=== PATIENT | male | born 1955 | race Caucasian/White ===

== ENCOUNTER 2016-05-05 04:21 | Emergency (ER) | payer MEDICARE ==
[~2016-05-05] VITALS: Ht 185.4 cm; Wt 100.5 kg
[~2016-05-05 04:21] MED LIST: AMLO10TA4 PO; AMLO2.5T PO; DIAZ10TA PO; GABA800T2 PO; METR500T PO; POTA20TA6 PO; RISP0.2518 PO; RISP1TAB45 PO; SIMV20TA3 PO; SIMV5TAB5 PO
[2016-05-05] MEDS ORDERED: ASPIRIN 81 MG TABLET CHEW ONE (04:58)
[2016-05-05] MEDS ORDERED: LORazepam 1MG TABLET ONE (04:58)
[2016-05-05] MEDS ORDERED: ASPIRIN 81 MG TABLET CHEW PO ONE (05:00)
[2016-05-05] MEDS ORDERED: LORazepam 1MG TABLET PO ONE (05:00)
[2016-05-05 05:40] LABS: HEMOGLOBIN 15.4 g/dL (13.7-18.0)
[2016-05-05 05:53] LABS: BLOOD UREA NITROGEN 13 mg/dL (7-18)
[2016-05-05 06:00] LABS: IS PT STATUS REG ER OR PRE ER? YES
[2016-05-05 06:40] VITALS: BP 122/64
== END 2016-05-05 06:44 | disposition home or self-care (01) ==
LOC: ED 06:08
DX: F41.1 Generalized anxiety disorder (principal); I10 Essential (primary) hypertension; J44.9 Chronic obstructive pulmonary disease, unspecified; F31.9 Bipolar disorder, unspecified; Z90.89 Acquired absence of other organs
CPT/HCPCS: 36415; 71010; 80048; 82040; 84436; 84443; 84484; 85025; 93005

== ENCOUNTER 2016-05-21 06:57 | Emergency (ER) | payer MEDICARE ==
[~2016-05-21] VITALS: Ht 185.4 cm; Wt 101.7 kg
[2016-05-21] MEDS ORDERED: LORazepam 1MG TABLET ONE (07:33)
[2016-05-21] MEDS ORDERED: LORazepam 1MG TABLET PO ONE (08:00)
[2016-05-21 09:20] VITALS: BP 135/74
== END 2016-05-21 09:21 | disposition home or self-care (01) ==
LOC: ED 07:23
DX: F41.1 Generalized anxiety disorder (principal); J44.9 Chronic obstructive pulmonary disease, unspecified; F31.9 Bipolar disorder, unspecified; Z90.49 Acquired absence of other specified parts of digestive tract
CPT/HCPCS: 71020; 93005

== ENCOUNTER 2016-06-15 05:08 | Emergency (ER) | payer MEDICARE ==
[~2016-06-15] VITALS: Ht 185.4 cm; Wt 103.5 kg
[2016-06-15] MEDS ORDERED: LORazepam 1MG TABLET PO ONE (06:00)
[2016-06-15] MEDS ORDERED: LORazepam 1MG TABLET ONE (06:09)
[2016-06-15 06:13] VITALS: BP 135/76
== END 2016-06-15 06:22 | disposition home or self-care (01) ==
LOC: ED 06:20
DX: F41.1 Generalized anxiety disorder (principal); R06.4 Hyperventilation; F10.20 Alcohol dependence, uncomplicated
CPT/HCPCS: 99284

== ENCOUNTER 2016-06-24 02:40 | Emergency (ER) | payer MEDICARE ==
[~2016-06-24] VITALS: Ht 185.4 cm; Wt 74.0 kg
[2016-06-24] MEDS ORDERED: ONDANSETRON ODT 8 MG PO ONE (03:00)
[2016-06-24] MEDS ORDERED: METOCLOPRAMIDE 5 MG/ML, 2ML IM ONE (03:00)
[2016-06-24] MEDS ORDERED: METOCLOPRAMIDE 5 MG/ML, 2ML ONE (03:11)
[2016-06-24] MEDS ORDERED: ONDANSETRON ODT 8 MG ONE (03:12)
[2016-06-24] MEDS ORDERED: MAALOX/HYOSCYAMINE/LIDOCAINE 45 ML BOTTLE PO ONE (03:30)
[2016-06-24] MEDS ORDERED: FAMOTIDINE 20 MG TABLET PO ONE (03:30)
[2016-06-24 04:30] VITALS: BP 152/89
[2016-06-24] MEDS ORDERED: MAALOX/HYOSCYAMINE/LIDOCAINE 45 ML BOTTLE ONE (04:39)
[2016-06-24] MEDS ORDERED: FAMOTIDINE 20 MG TABLET ONE (04:39)
== END 2016-06-24 05:06 | disposition home or self-care (01) ==
LOC: ED 03:26 → UNDOADMIN 04:03 → EDIP 04:03 → ED 05:06
DX: F10.220 Alcohol dependence with intoxication, uncomplicated (principal); K29.00 Acute gastritis without bleeding; J44.9 Chronic obstructive pulmonary disease, unspecified; I10 Essential (primary) hypertension; F31.9 Bipolar disorder, unspecified
CPT/HCPCS: 96372; 99284; J2765; Q0162

== ENCOUNTER 2016-07-19 23:10 | Emergency (ER) | payer MEDICARE ==
[~2016-07-19] VITALS: Ht 185.4 cm; Wt 101.4 kg
[2016-07-19] MEDS ORDERED: LORA-446 PO (23:50)
[2016-07-19] MEDS ORDERED: LORazepam 1MG TABLET ONE (23:58)
[2016-07-20] MEDS ORDERED: LORazepam 1MG TABLET PO ONE
[2016-07-20 00:02] VITALS: BP 122/87
== END 2016-07-20 00:37 | disposition home or self-care (01) ==
LOC: ED 23:46
DX: F41.1 Generalized anxiety disorder (principal); R25.1 Tremor, unspecified; F31.9 Bipolar disorder, unspecified; J44.9 Chronic obstructive pulmonary disease, unspecified; Z87.891 Personal history of nicotine dependence
CPT/HCPCS: 99284

== ENCOUNTER 2016-09-20 03:20 | Emergency (ER) | payer MEDICARE ==
[~2016-09-20] VITALS: Ht 185.4 cm; Wt 103.7 kg
[~2016-09-20 03:20] MED LIST changes: +LORA-446 PO
[2016-09-20] MEDS ORDERED: LORazepam 1MG TABLET ONE (04:47)
[2016-09-20 04:51] VITALS: BP 126/77
[2016-09-20] MEDS ORDERED: LORazepam 1MG TABLET PO ONE (05:00)
== END 2016-09-20 05:58 | disposition home or self-care (01) ==
LOC: ED 03:42
DX: F41.1 Generalized anxiety disorder (principal); F31.9 Bipolar disorder, unspecified; I10 Essential (primary) hypertension; J44.9 Chronic obstructive pulmonary disease, unspecified; Z88.1 Allergy status to other antibiotic agents
CPT/HCPCS: 99284

== ENCOUNTER 2017-12-22 08:50 | Inpatient (IN) | payer MEDICARE ==
[~2017-12-22] VITALS: Ht 185.4 cm; Wt 98.4 kg
[~2017-12-22 08:50] MED LIST changes: -AMLO2.5T PO; +AMLO2.5T3 PO
[2017-12-22] MEDS ORDERED: SODIUM CHLORIDE 0.9% 1,000ML IVBOLUS ONE (09:30)
[2017-12-22] MEDS ORDERED: SODIUM CHLORIDE FLUSH 10ML SYR IVF ONE (09:30)
[2017-12-22] MEDS ORDERED: ONDANSETRON 2MG/ML, 2ML IVPush ONE (09:30)
[2017-12-22] MEDS ORDERED: ONDANSETRON 2MG/ML, 2ML ONE (09:48)
[2017-12-22] MEDS ORDERED: LORazepam 2 MG/ML, 1ML ONE ×2 (09:48→11:08)
[2017-12-22] MEDS: LORazepam 2 MG/ML, 1ML IVPush PRN ×3 (09:50→11:10)
[2017-12-22 09:52] LABS: MEAN CORPUSCULAR HEMOGLOBIN 34.2 pg (27.5-34.5); MEAN CORPUSCULAR HGB CONC 35.3 g/dL (33.2-36.2); MEAN CORPUSCULAR VOLUME 96.7 fL (81-97); MEAN PLATELET VOLUME 6.6 fL (7.4-10.4); PLATELET COUNT 352 x10^3/uL (130-400); RED BLOOD COUNT 4.82 x10^6/uL (4.38-5.82); RED CELL DISTRIBUTION WIDTH 12.8 % (9.4-14.8)
[2017-12-22 10:00] LABS: CHLORIDE 97 mmol/L (98-107)
[2017-12-22 10:05] LABS: ALANINE AMINOTRANSFERASE 54 U/L (12-78); ALBUMIN 4.4 g/dL (3.4-5.0); ANION GAP 19 mmol/L (5-15); CALCIUM 9.1 mg/dL (8.5-10.1)
[2017-12-22] MEDS ORDERED: PROMETHAZINE 25 MG/ML, 1ML ONE (10:05)
[2017-12-22 10:06] LABS: MD YES
[2017-12-22 10:07] LABS: <RBC MORPHOLOGY> NORMAL; BAND#(MANUAL) 0.64 x10^3/uL; BANDS%(MANUAL) 3 % (0-7); LYMPH#(MANUAL) 1.07 x10^3/uL (1-3.4); LYMPHS% (MANUAL) 5 % (22-44); MONOS#(MANUAL) 0.21 x10^3/uL (0.3-2.7); MONOS% (MANUAL) 1 % (2-9); SEG#(MANUAL) 19.38 x10^3/uL (1.8-6.8); SEGS% (MANUAL) 91 % (42-75)
[2017-12-22 10:08] LABS: <PLATELET ESTIMATE> ADEQUATE; <PLT MORPHOLOGY> NORMAL PLT MORPH
[2017-12-22 10:21] LABS: ALKALINE PHOSPHATASE 98 U/L (45-117); BILIRUBIN,TOTAL 2.1 mg/dL (0.2-1.0); CREATININE 0.85 mg/dL (0.7-1.3); TOTAL PROTEIN 8.3 g/dL (6.4-8.2)
[2017-12-22] MEDS ORDERED: PROMETHAZINE 25 MG/ML, 1ML IM ONE (10:30)
[2017-12-22 10:39] LABS: ACETONE, SERUM Moderate(40mg/dL) mg/dL (Negative)
[2017-12-22] MEDS ORDERED: CEFTRIAXONE 1,000 MG in SODIUM CHLORIDE 0.9% 50 ML IVPB ONE (11:00)
[2017-12-22] MEDS ORDERED: CEFTRIAXONE PMX 1GM/50ML 50 ML ONE (11:08)
[2017-12-22] MEDS ORDERED: THIAMINE 100 MG in SODIUM CHLORIDE 0.9% 50 ML IV ONE (11:30)
[2017-12-22] MEDS ORDERED: SODIUM CHLORIDE 0.9%, 500ML IVBOLUS ONE (11:30)
[2017-12-22 11:33] LABS: TROPONIN I < 0.015 ng/mL (0.000-0.045)
[2017-12-22] MEDS ORDERED: OMNIPAQUE 350 MG/ML, 100ML BOTTLE ONE (11:49)
[2017-12-22] MEDS ORDERED: ONDANSETRON ODT 4 MG PO PRN (12:30)
[2017-12-22] MEDS ORDERED: ONDANSETRON 2MG/ML, 2ML IVPush PRN (12:30)
[2017-12-22] MEDS: NS + 40MEQ KCL 1,000 ML IV SCH ×2 (12:46→20:14)
[2017-12-22 12:50] VITALS: BP 135/73
[2017-12-22] MEDS ORDERED: LORazepam 2 MG/ML, 1ML IV PRN ×3 (13:00)
[2017-12-22] MEDS ORDERED: LORazepam 1MG TABLET PO PRN (13:00)
[2017-12-22] MEDS: HEPARIN 5,000 UNITS/ML, 1ML SQ SCH ×2 (13:24→21:32)
[2017-12-22] MEDS: POTASSIUM CHLORIDE 20 MEQ, MAGNESIUM SULFATE 1 GM, THIAMINE 200 MG, FOLIC ACID 1 MG, MV... IV SCH (13:24)
[2017-12-22] MEDS: LORazepam 1MG TABLET PO PRN ×2 (14:15→23:40)
[2017-12-22 15:28] LABS: TROPONIN I 0.018 ng/mL (0.000-0.045)
[2017-12-22] MEDS: MORPHINE SULFATE 4 MG/ML, 1ML IVPush PRN ×2 (16:19→20:14)
[2017-12-22] MEDS: PROMETHAZINE 25 MG/ML, 1ML IM PRN ×2 (16:21→22:15)
[2017-12-22] MEDS: LORazepam 2 MG/ML, 1ML IV PRN ×2 (18:12→21:31)
[2017-12-22 21:45] LABS: TROPONIN I 0.026 ng/mL (0.000-0.045)
[2017-12-22 21:48] VITALS: BP 135/75
[2017-12-23 01:49] VITALS: BP 125/69
[2017-12-23] MEDS: MORPHINE SULFATE 4 MG/ML, 1ML IVPush PRN ×4 (02:21→18:24)
[2017-12-23] MEDS: NS + 40MEQ KCL 1,000 ML IV SCH ×4 (03:05→23:03)
[2017-12-23] MEDS: LORazepam 1MG TABLET PO PRN (04:13)
[2017-12-23] MEDS: HEPARIN 5,000 UNITS/ML, 1ML SQ SCH ×3 (04:30→20:08)
[2017-12-23] MEDS: PROMETHAZINE 25 MG/ML, 1ML IM PRN ×3 (06:31→23:11)
[2017-12-23 06:32] LABS: BASOPHILS % (AUTO) 1 % (0-1); EOSINOPHILS # (AUTO) 0.01 x10^3/uL (0-0.4); EOSINOPHILS % (AUTO) 0 % (1-7); LYMPHOCYTES # (AUTO) 1.85 x10^3/uL (1-3.4); LYMPHOCYTES % (AUTO) 22 % (22-44); MD NO; MEAN CORPUSCULAR HEMOGLOBIN 34.2 pg (27.5-34.5); MEAN CORPUSCULAR HGB CONC 35.3 g/dL (33.2-36.2); MEAN CORPUSCULAR VOLUME 96.8 fL (81-97); MEAN PLATELET VOLUME 6.1 fL (7.4-10.4); MONOCYTES # (AUTO) 0.61 x10^3/uL (0.2-0.8); MONOCYTES % (AUTO) 7 % (2-9); NEUTROPHILS # (AUTO) 5.86 x10^3/uL (1.8-6.8); NEUTROPHILS % (AUTO) 70 % (42-75); PLATELET COUNT 232 x10^3/uL (130-400); RED BLOOD COUNT 4.11 x10^6/uL (4.38-5.82); RED CELL DISTRIBUTION WIDTH 13.1 % (9.4-14.8)
[2017-12-23 06:43] LABS: ALBUMIN 3.3 g/dL (3.4-5.0); ANION GAP 10 mmol/L (5-15); CALCIUM 7.4 mg/dL (8.5-10.1); CHLORIDE 107 mmol/L (98-107)
[2017-12-23 06:55] LABS: ALANINE AMINOTRANSFERASE 63 U/L (12-78); ALKALINE PHOSPHATASE 69 U/L (45-117); BILIRUBIN,TOTAL 0.9 mg/dL (0.2-1.0); CREATININE 0.56 mg/dL (0.7-1.3)
[2017-12-23 07:15] VITALS: BP 121/73
[2017-12-23] MEDS ORDERED: PANTOPRAZOLE 40 MG IV IVPush SCH (07:30)
[2017-12-23 10:39] LABS: MICROSCOPIC AUTO
[2017-12-23 10:41] LABS: CULTURE INDICATED? NO
[2017-12-23] MEDS: LORazepam 2 MG/ML, 1ML IV PRN (11:19)
[2017-12-23] MEDS ORDERED: PANTOPRAZOLE 40 MG IV ONE (11:41)
[2017-12-23] MEDS: SUCRALFATE 1 GM/10 ML UDC PO SCH ×3 (11:57→23:02)
[2017-12-23] MEDS: PANTOPRAZOLE 40 MG IV IVPush SCH (11:57)
[2017-12-23] MEDS: POTASSIUM CHLORIDE 20 MEQ, MAGNESIUM SULFATE 1 GM, THIAMINE 200 MG, FOLIC ACID 1 MG, MV... IV SCH (13:35)
[2017-12-23 14:34] VITALS: BP 138/77
[2017-12-23 19:02] VITALS: BP 118/71
[2017-12-24 00:50] VITALS: BP 116/70
[2017-12-24] MEDS: HEPARIN 5,000 UNITS/ML, 1ML SQ SCH ×3 (05:00→20:12)
[2017-12-24] MEDS: LORazepam 1MG TABLET PO PRN ×6 (05:00→20:13)
[2017-12-24] MEDS: NS + 40MEQ KCL 1,000 ML IV SCH (05:38)
[2017-12-24 06:02] LABS: BASOPHILS # (AUTO) 0.04 x10^3/uL (0-0.1); BASOPHILS % (AUTO) 0 % (0-1); EOSINOPHILS # (AUTO) 0.09 x10^3/uL (0-0.4); EOSINOPHILS % (AUTO) 1 % (1-7); LYMPHOCYTES # (AUTO) 2.22 x10^3/uL (1-3.4); LYMPHOCYTES % (AUTO) 25 % (22-44); MD NO; MEAN CORPUSCULAR HEMOGLOBIN 34.1 pg (27.5-34.5); MEAN CORPUSCULAR HGB CONC 35.1 g/dL (33.2-36.2); MEAN CORPUSCULAR VOLUME 97.2 fL (81-97); MEAN PLATELET VOLUME 6.2 fL (7.4-10.4); MONOCYTES % (AUTO) 6 % (2-9); NEUTROPHILS # (AUTO) 5.96 x10^3/uL (1.8-6.8); NEUTROPHILS % (AUTO) 68 % (42-75); PLATELET COUNT 234 x10^3/uL (130-400); RED BLOOD COUNT 4.28 x10^6/uL (4.38-5.82); RED CELL DISTRIBUTION WIDTH 13.1 % (9.4-14.8)
[2017-12-24 06:08] LABS: ALBUMIN 3.1 g/dL (3.4-5.0); ANION GAP 9 mmol/L (5-15); CHLORIDE 108 mmol/L (98-107)
[2017-12-24 06:13] LABS: ALANINE AMINOTRANSFERASE 69 U/L (12-78); ALKALINE PHOSPHATASE 68 U/L (45-117); BILIRUBIN,TOTAL 0.8 mg/dL (0.2-1.0); CALCIUM 7.4 mg/dL (8.5-10.1); TOTAL PROTEIN 5.9 g/dL (6.4-8.2)
[2017-12-24 07:15] VITALS: BP 136/76
[2017-12-24] MEDS: PANTOPRAZOLE 40 MG IV IVPush SCH ×2 (07:53→20:12)
[2017-12-24] MEDS: SUCRALFATE 1 GM/10 ML UDC PO SCH ×4 (07:54→20:12)
[2017-12-24] MEDS ORDERED: POTASSIUM PHOSPHATE 22 MEQ in SODIUM CHLORIDE 0.9% 500 ML IV ONE (09:30)
[2017-12-24 13:05] VITALS: BP 127/82
[2017-12-24] MEDS ORDERED: POTASSIUM CHLORIDE 40 MEQ in SODIUM CHLORIDE 0.9% 500 ML IV ONE ×2 (13:30→19:30)
[2017-12-24] MEDS: POTASSIUM CHLORIDE 20 MEQ, MAGNESIUM SULFATE 1 GM, THIAMINE 200 MG, FOLIC ACID 1 MG, MV... IV SCH (17:10)
[2017-12-24 18:50] VITALS: BP 112/70
[2017-12-24] MEDS: LORazepam 0.5MG TABLET PO PRN (23:48)
[2017-12-25] MEDS: LORazepam 0.5MG TABLET PO PRN (03:25)
[2017-12-25 03:57] VITALS: BP 95/61
[2017-12-25] MEDS: HEPARIN 5,000 UNITS/ML, 1ML SQ SCH ×3 (04:30→20:44)
[2017-12-25 04:44] LABS: BASOPHILS # (AUTO) 0.04 x10^3/uL (0-0.1); BASOPHILS % (AUTO) 0 % (0-1); EOSINOPHILS # (AUTO) 0.16 x10^3/uL (0-0.4); EOSINOPHILS % (AUTO) 2 % (1-7); LYMPHOCYTES # (AUTO) 2.62 x10^3/uL (1-3.4); LYMPHOCYTES % (AUTO) 30 % (22-44); MD NO; MEAN CORPUSCULAR HEMOGLOBIN 34.6 pg (27.5-34.5); MEAN CORPUSCULAR HGB CONC 35.4 g/dL (33.2-36.2); MEAN CORPUSCULAR VOLUME 97.7 fL (81-97); MEAN PLATELET VOLUME 6.4 fL (7.4-10.4); MONOCYTES # (AUTO) 0.53 x10^3/uL (0.2-0.8); MONOCYTES % (AUTO) 6 % (2-9); NEUTROPHILS # (AUTO) 5.53 x10^3/uL (1.8-6.8); NEUTROPHILS % (AUTO) 62 % (42-75); PLATELET COUNT 236 x10^3/uL (130-400); RED BLOOD COUNT 4.28 x10^6/uL (4.38-5.82); RED CELL DISTRIBUTION WIDTH 12.8 % (9.4-14.8)
[2017-12-25 04:51] LABS: ANION GAP 8 mmol/L (5-15); CHLORIDE 108 mmol/L (98-107)
[2017-12-25 04:52] LABS: CREATININE 0.66 mg/dL (0.7-1.3)
[2017-12-25 07:03] VITALS: BP 129/80
[2017-12-25] MEDS: PANTOPRAZOLE 40 MG IV IVPush SCH (08:21)
[2017-12-25] MEDS: SUCRALFATE 1 GM/10 ML UDC PO SCH ×4 (08:21→20:43)
[2017-12-25] MEDS: LORazepam 1MG TABLET PO PRN ×4 (08:22→20:43)
[2017-12-25] MEDS ORDERED: MAALOX/HYOSCYAMINE/LIDOCAINE 45 ML BTL PO ONE (10:00)
[2017-12-25] MEDS ORDERED: LORA2TAB PO (12:23)
[2017-12-25] MEDS ORDERED: RISP2TAB3 PO (12:23)
[2017-12-25] MEDS ORDERED: LORA1TAB PO (12:23)
[2017-12-25] MEDS ORDERED: ATOR40TA78 PO (12:23)
[2017-12-25 12:54] VITALS: BP 125/80
[2017-12-25] MEDS: RISPERIDONE 2 MG TABLET PO SCH (14:10)
[2017-12-25] MEDS: POTASSIUM CHLORIDE 20 MEQ, MAGNESIUM SULFATE 1 GM, THIAMINE 200 MG, FOLIC ACID 1 MG, MV... IV SCH (14:10)
[2017-12-25] MEDS: GABAPENTIN 400 MG CAPSULE PO SCH ×2 (16:54→20:43)
[2017-12-25] MEDS: PANTOPROZOLE 40MG TABLET PO SCH (20:43)
[2017-12-25] MEDS ORDERED: ATORVASTATIN 40 MG TABLET PO SCH (21:00)
[2017-12-25 21:49] VITALS: BP 131/69
[2017-12-26] MEDS: LORazepam 1MG TABLET PO PRN ×2 (00:59→05:12)
[2017-12-26 03:40] VITALS: BP 115/74
[2017-12-26] MEDS: HEPARIN 5,000 UNITS/ML, 1ML SQ SCH (04:30)
[2017-12-26 05:20] LABS: BASOPHILS # (AUTO) 0.06 x10^3/uL (0-0.1); BASOPHILS % (AUTO) 1 % (0-1); EOSINOPHILS # (AUTO) 0.18 x10^3/uL (0-0.4); EOSINOPHILS % (AUTO) 2 % (1-7); LYMPHOCYTES # (AUTO) 2.74 x10^3/uL (1-3.4); LYMPHOCYTES % (AUTO) 28 % (22-44); MD NO; MEAN CORPUSCULAR HGB CONC 35.2 g/dL (33.2-36.2); MEAN CORPUSCULAR VOLUME 96.6 fL (81-97); MEAN PLATELET VOLUME 6.3 fL (7.4-10.4); MONOCYTES # (AUTO) 0.57 x10^3/uL (0.2-0.8); MONOCYTES % (AUTO) 6 % (2-9); NEUTROPHILS # (AUTO) 6.26 x10^3/uL (1.8-6.8); NEUTROPHILS % (AUTO) 64 % (42-75); PLATELET COUNT 245 x10^3/uL (130-400); RED BLOOD COUNT 4.61 x10^6/uL (4.38-5.82)
[2017-12-26 05:24] LABS: ALBUMIN 3.3 g/dL (3.4-5.0); ANION GAP 7 mmol/L (5-15); CALCIUM 8.2 mg/dL (8.5-10.1); CHLORIDE 107 mmol/L (98-107); CREATININE 0.91 mg/dL (0.7-1.3)
[2017-12-26] MEDS ORDERED: RISPERIDONE 2 MG TABLET PO SCH (09:00)
[2017-12-26] MEDS ORDERED: AMLODIPINE 2.5 MG TABLET PO SCH (09:00)
[2017-12-26] MEDS: PANTOPROZOLE 40MG TABLET PO SCH (09:00)
[2017-12-26 09:50] VITALS: BP 134/82
[2017-12-26] MEDS: SUCRALFATE 1 GM/10 ML UDC PO SCH ×2 (09:51→11:43)
[2017-12-26] MEDS: GABAPENTIN 400 MG CAPSULE PO SCH (09:52)
[2017-12-26] MEDS: RISPERIDONE 2 MG TABLET PO SCH (09:52)
[2017-12-26] MEDS ORDERED: LORazepam 1MG TABLET PO PRN (10:00)
[2017-12-26] MEDS ORDERED: PANT40TA5 PO (11:28)
[2017-12-26] MEDS ORDERED: SUCR1ORA5 PO (11:28)
[2017-12-26] MEDS ORDERED: FOLI-17 PO (11:29)
[2017-12-26] MEDS ORDERED: THIA100T10 PO (11:29)
[2017-12-26 12:44] VITALS: BP 109/74
== END 2017-12-26 14:51 | disposition home or self-care (01) | DRG 872 ==
LOC: ED 10:31 → EDIP 11:11 → 4WST 12:17
PROVIDERS: ADMIT Hospitalist; ATTEND Hospitalist
DX: A41.9 Sepsis, unspecified organism (principal); F10.239 Alcohol dependence with withdrawal, unspecified; E87.1 Hypo-osmolality and hyponatremia; E87.2 Acidosis; J44.9 Chronic obstructive pulmonary disease, unspecified; K20.9 Esophagitis, unspecified; K70.9 Alcoholic liver disease, unspecified; K76.0 Fatty (change of) liver, not elsewhere classified; R73.9 Hyperglycemia, unspecified; E87.6 Hypokalemia; F31.9 Bipolar disorder, unspecified; F41.1 Generalized anxiety disorder; I10 Essential (primary) hypertension; I25.2 Old myocardial infarction; Z85.820 Personal history of malignant melanoma of skin; Z90.49 Acquired absence of other specified parts of digestive tract; Z81.1 Family history of alcohol abuse and dependence; Z88.1 Allergy status to other antibiotic agents
CPT/HCPCS: 36415; 71045; 74177; 80048; 80053; 80307; 81001; 82010; 82040; 83605; 83690; 83735; 84100; 84443; 84484; 85025; 87040; 93005; 96361; 96365; 96367; 96372; 96375; 96376; G0378; J0696; J1644; J2405; J2550; J3411; J3475; J3480; Q9967; C9113; J2060; J7030; J7040